=== PATIENT | female | born 1930 | race Caucasian/White ===

== ENCOUNTER → 2018-09-25 | Outpatient (CLI) | payer MEDICARE | LOC: GT 06:45 | PROVIDERS: ATTEND Internal Medicine | DX: R30.0 Dysuria (principal) ==

== ENCOUNTER → 2018-10-26 | Outpatient (CLI) | payer MEDICARE | LOC: GT 11:37 | PROVIDERS: ATTEND Internal Medicine | DX: N39.0 Urinary tract infection, site not specified (principal) ==

== ENCOUNTER → 2018-12-09 | Outpatient (CLI) | payer MEDICARE ==
--- NOTE | 2018-12-09 10:59 | RAD ---
EXAM DESCRIPTION: Chest,2 Views CLINICAL HISTORY: TACHYCARDIA COMPARISON: None TECHNIQUE: PA/lateral FINDINGS: There is no acute appearing cardiac or pulmonary abnormality. Heart size is normal with normal pulmonary vascularity. No pleural effusion or pneumothorax. Lungs are clear with no consolidating infiltrate. Lateral view shows intact sternum and osteopenic T-spine. Lungs appear hyperexpanded on lateral view. IMPRESSION: No acute process is identified in the chest. Electronically signed by: Lavell Yu MD 12/09/2018 10:57 AM CDT
== END ==
LOC: RESP 09:59
PROVIDERS: ATTEND Internal Medicine
DX: R00.0 Tachycardia, unspecified (principal)

== ENCOUNTER 2020-03-30 13:26 | Inpatient (IN) | payer MEDICARE, OTHER ==
--- NOTE | 2020-03-30 14:46 | RAD ---
EXAM: Chest,1 View INDICATION: 89 years Female, COVID+ COMPARISON: 2 views of the chest 12/09/2018 FINDINGS: Single view of the chest was performed. Low lung volumes. Heart size appears more prominent than on the prior examination, but may be accentuated due to image technique and low lung volumes. Mild prominence of the thoracic aorta, which may be related to tortuosity and patient angulation. No pulmonary infiltrate is identified. No pleural effusion. No pneumothorax. Osteopenia. An air-filled loop of bowel is noted in the left upper quadrant. Suture anchors noted at the right proximal humerus. IMPRESSION: 1. Low lung volumes. No pulmonary infiltrate is identified. 2. Heart size appears more prominent than on the prior examination from 12/09/2018, although this is favored to be related to patient positioning and image technique. Electronically signed by: Galilea Llamas MD 03/30/2020 2:45 PM [facility]
[2020-03-30] MEDS ORDERED: AZITHROMYCIN IV 500 MG in SODIUM CHLORIDE 0.9% 250ML 250 ML IVPB ONE (14:56)
[2020-03-30] MEDS ORDERED: cefTRIAXone SODIUM 1 GM in SODIUM CHL 0.9% 50ML MIN-BAG+ 50 ML IVPB ONE (14:56)
[2020-03-30] MEDS ORDERED: DEXAMETHASONE INJ 4 MG/ML VIAL IV ONE (14:57)
--- NOTE | 2020-03-30 15:03 | ED.PDOC ---
History of Present Illness - General Chief Complaint: General Stated Complaint: Sent over to be evaluated for COVID dx Time Seen by Provider: 03/30/20 13:49 Source: patient, EMS notes reviewed, [facility] records Exam Limitations: clinical condition - History of Present Illness Initial Comments: The patient is an 89-year-old female presented to emergency room secondary to being Covid positive. The patient is not short of breath. She is not exhibiting any increased work of breathing. The patient does have some dementia but she is perfectly interactive. She is not complaining of anything. The patient however does have some hypoxia desaturating down to around 88% on room air. She did test positive for Covid this morning. She does have numerous longstanding medical problems. Lung mcg[place] are actually almost clear. Timing/Duration: unsure Severity: mild Improving Factors: nothing Worsening Factors: nothing Associated Symptoms: denies symptoms Allergies/Adverse Reactions: Allergies Penicillins Allergy (Verified 03/30/20 13:46) Sulfa Antibiotics Allergy (Verified 03/30/20 13:46) Home Medications: Ambulatory Orders Ciprofloxacin [Cipro] 250 mg PO BID #20 tab 12/13/13 Levothyroxine Sodium 12/13/13 Metformin HCl 12/13/13 Phenazopyridine HCl [Pyridium] 200 mg PO TID #6 tab 12/13/13 Review of Systems - Review of Systems Constitutional: States: no symptoms reported EENTM: States: no symptoms reported Respiratory: States: no symptoms reported Cardiology: States: no symptoms reported Gastrointestinal/Abdominal: States: no symptoms reported Genitourinary: States: no symptoms reported Musculoskeletal: States: no symptoms reported Skin: States: no symptoms reported Neurological: States: no symptoms reported Endocrine: States: no symptoms reported All other Systems: No Change from Baseline Past Medical History (General) - Patient Medical History Hx Stroke: Yes Hx of COPD: No Hx Cardiac Disorders: No Hx Congestive Heart Failure: No Hx Hypertension: No Hx Thyroid Disease: Yes Hx Diabetes: Yes Hx Cancer: No Surgical History: tonsillectomy, other - Vaccination History Hx Influenza Vaccination: Yes Hx Pneumococcal Vaccination: Yes - Social History Hx Tobacco Use: No Hx Alcohol Use: No Hx Substance Use: No Hx Substance Use Treatment: No Hx Depression: No - Activities of Daily Living Senior Care/Assisted Living (if applicable):: [place] - Female History Patient is a Female of Child Bearing Age (10 -59 yrs old): No Patient : No Family Medical History - Family History Mother Family History: Unknown Physical Exam - Physical Exam General Appearance: Alert, Comfortable, No apparent distress Eye Exam: bilateral normal Ears, Nose, Throat: hearing grossly normal, normal pharynx, nasal congestion Neck: full range of motion, supple Respiratory: no respiratory distress, no accessory muscle use, other - Possibly very fine scattered rails Cardiovascular/Chest: normal peripheral pulses, other - +1 edema to bilateral lower extremities. 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 She does have increased markers for inflammation and a mild lactic acidosis. The patient is being s tarted on oxygen here. She is actually very comfortable as she is. Blood cultures are being done. The patient is being started on Rocephin, azithromycin, remdesivir and dexamethasone. She does have an elevated D-dimer and we will review the records to see if she is already on a blood thinner, and if not start her on 1. The patient does have a very high mortality risk with coronavirus. Admitting for continued care and monitoring. For now the patient appears to be tolerating it well clinically. emily [email or web address] [phone] - Results/Orders Results/Orders: Laboratory Tests 03/30/20 03/30/20 03/30/20 14:19 14:19 14:19 WBC 8.6 RBC 4.47 Hgb 13.8 Hct 40.4 MCV 90.4 MCH 30.9 MCHC 34.2 RDW 14.9 H Plt Count 268 MPV 8.9 Absolute Neuts (auto) 7.20 H Absolute Lymphs (auto) 0.90 L Absolute Monos (auto) 0.50 Absolute Eos (auto) 0.00 Absolute Basos (auto) 0.00 Neutrophils % 83.8 H Lymphocytes % 10.0 L Monocytes % 5.5 Eosinophils % 0.2 L Basophils % 0.5 D-Dimer, Quantitative 812.0 H* Sodium 135 Potassium 3.8 Chloride 98 L Carbon Dioxide 22 Anion Gap 18.8 H BUN 25 H Creatinine 0.56 L BUN/Creatinine Ratio 44.6 H Random Glucose 246 H Serum Osmolality 282.7 Lactic Acid Calcium 8.6 Total Bilirubin 0.4 AST 22 ALT 20 Alkaline Phosphatase 77 LD Total 128 Creatine Kinase 13 L CK-MB (CK-2) 1.2 CK-MB (CK-2) % Not Reportable Troponin I < 0.02 C-Reactive Protein 1.0 B-Natriuretic Peptide 68.4 Serum Total Protein 6.8 Albumin 3.3 Globulin 3.5 Albumin/Globulin Ratio 0.9 L 03/30/20 14:19 WBC RBC Hgb Hct MCV MCH MCHC RDW Plt Count MPV Absolute Neuts (auto) Absolute Lymphs (auto) Absolute Monos (auto) Absolute Eos (auto) Absolute Basos (auto) Neutrophils % Lymphocytes % Monocytes % Eosinophils % Basophils % D-Dimer, Quantitative Sodium Potassium Chloride Carbon Dioxide Anion Gap BUN Creatinine BUN/Creatinine Ratio Random Glucose Serum Osmolality Lactic Acid 4.0 H* Calcium Total Bilirubin AST ALT Alkaline Phosphatase LD Total Creatine Kinase CK-MB (CK-2) CK-MB (CK-2) % Troponin I C-Reactive Protein B-Natriuretic Peptide Serum Total Protein Albumin Globulin Albumin/Globulin Ratio Chest x-ray shows no definitive acute pathology. Departure - Departure Clinical Impression: Pneumonia due to 2019 novel coronavirus, Lactic acidosis Disposition: Admit Patient Condition: Poor Departure Forms: ED Discharge - Pt. Copy, Patient Portal Self Enrollment Referrals: MAYELA RICO [Primary Care Provider] - 1-2 Weeks Home Medications: Ambulatory Orders Ciprofloxacin [Cipro] 250 mg PO BID #20 tab 12/13/13 Levothyroxine Sodium 12/13/13 Metformin HCl 12/13/13 Phenazopyridine HCl [Pyridium] 200 mg PO TID #6 tab 12/13/13 Decision To Admit - Decistion To Admit Decision to Admit Reason: Medical Nature Decision to Admit Date: 03/30/20 Decision to Admit Time: 15:04
[2020-03-30] MEDS ORDERED: SODIUM CHLORIDE 0.9% 1000ML 500 ML IVS ONE (15:04)
--- NOTE | 2020-03-30 15:34 | HP ---
SUPERVISING PHYSICIAN: David Fischer MD CHIEF COMPLAINT: Covid-19. HISTORY OF PRESENT ILLNESS: This is an 89 year-old female patient who presented to the Emergency Room secondary to being Covid positive. She actually went down to 88% on room air and required some oxygen. Her initial labs were temperature 98.2, heart rate of 111, blood pressure 135/89, respiratory rate 18, oxygen saturation 93%, it had been down to 88% on room air. Lab was done and her CBC was basically unremarkable except she did have a left shift on her differential. Her D-dimer was 812. Electrolytes were basically within normal limits with BUN of 25, creatinine 0.56. Lactic acid 4. Blood cultures were drawn. Chest x-ray showed: 1. Low lung volumes, no pulmonary infiltrate identified. 2. Right side appears more prominent than on prior examination on 12/09/2018, although this may be due to patient positioning and image technique. She was given some dexamethasone, some Remdesivir, azithromycin in the Emergency Room and I was called for hospital admission. PAST MEDICAL HISTORY: 1. Cerebrovascular accident. 2. Dementia. 3. Diabetes mellitus. 4. Hypothyroidism. PAST SURGICAL HISTORY: Tonsillectomy. CURRENT MEDICATIONS: Per the EMR and awaiting verification. ALLERGIES: Penicillins and sulfas. SOCIAL HISTORY: She lives at [facility]. There is no history of smoking, ETOH or illicit drug use. REVIEW OF SYSTEMS: GENERAL: Negative for fatigue, fever or weight changes. HEENT: Negative for sinus symptoms, ear pain, vision changes, sore throat. RESPIRATORY: Negative for coughing, wheezing, shortness of breath. CARDIAC: Negative for chest pain, palpitations, tachycardia. GI: Negative for nausea, vomiting, diarrhea. GENITOURINARY: Negative for hematuria, dysuria, polyuria. MUSCULOSKELETAL: Negative for arthralgias, myalgias. SKIN: Negative for lesions or rashes. NEUROLOGICAL: Negative for weakness, headaches or seizures. PHYSICAL EXAMINATION: VITAL SIGNS: Temperature 99, heart rate 115, blood pressure 155/104, it did come down to 122/86 respiratory rate 22, oxygen saturation 93% on 2 liters nasal cannula. GENERAL: This is an 89 year-old female patient who is lying in her hospital bed. She is in no acute distress. HEENT: Normocephalic and atraumatic. Pupils are equal and reactive. Oropharynx is clear. NECK: Supple without mass. CHEST: Essentially clear to auscultation bilaterally. CARDIOVASCULAR: Regular rate and rhythm. ABDOMEN: Soft, nondisplaced, non-tender. Bowel sounds are positive. EXTREMITIES: She does have a trace of edema to bilateral lower extremities. SKIN: Warm and dry. NEUROLOGIC: She is awake and alert but she is somewhat diminished. She is oriented to person and place. Labs and films are as per the history of present illness. ASSESSMENT: 1. Covid-19 Pneumonitis with mild hypoxia. 2. Dementia. 3. Diabetes mellitus type 2. 4. Hypothyroidism. PLAN: The patient has been placed in observation. She will be on the pneumonia and Covid guidelines. Will continue her on Decadron azithromycin, Rocephin, Lovenox and albuterol both p.r.n. and scheduled. She will have aggressive pulmonary hygiene. She has a PPI for ulcer prophylaxis, started her on sliding scale insulin protocol. I have ordered routine labs for any morning as well as a CT scan of the chest. We will continue to monitor closely and follow as needed. [facility][id number]
[2020-03-30] MEDS ORDERED: ALBUTEROL INHALER 64 PUFF/8GM INH PRN (16:57)
[2020-03-30] MEDS ORDERED: REMDESIVIR 200 MG in SODIUM CHLORIDE 0.9% 250ML 250 ML IVPB ONE (17:00)
[2020-03-30] MEDS ORDERED: ACETAMINOPHEN 325 MG TAB PO PRN (17:05)
[2020-03-30] MEDS ORDERED: SODIUM CHLORIDE 0.9% (FLUSH) 10 ML SYG IV PRN (17:05)
[2020-03-30] MEDS ORDERED: ONDANSETRON INJ 4 MG/2 ML VIAL IV PRN (17:05)
[2020-03-30] MEDS: IV SET AND CAP CHANGE INJ INJ SCH (18:07)
[2020-03-30] MEDS ORDERED: INSULIN LISPRO 100 UNITS/ML PEN SUBCU ONE (18:08)
[2020-03-30] MEDS ORDERED: SODIUM CHLORIDE 0.9% 250ML 0 ML ONE (20:39)
[2020-03-30] MEDS ORDERED: REMDESIVIR 0 MG ONE (20:39)
[2020-03-30] MEDS: guaiFENesin ER TAB 600 MG TAB PO SCH (20:58)
[2020-03-30] MEDS: ENOXAPARIN SODIUM 40 MG/0.4 ML SYG SUBCU SCH (20:58)
[2020-03-30] MEDS: SODIUM CHLORIDE 0.9% (FLUSH) 10 ML SYG IV SCH (20:59)
[2020-03-30] MEDS ORDERED: REMDESIVIR 200 MG in SODIUM CHLORIDE 0.9% 250ML 250 ML IVPB SCH (21:00)
[2020-03-30] MEDS: ALBUTEROL INHALER 64 PUFF/8GM INH SCH (22:05)
[2020-03-30] MEDS ORDERED: GLUCAGON INJ 1 MG VIAL SUBCU PRN (22:36)
[2020-03-30] MEDS ORDERED: DEXTROSE 50% 25 GM/50 ML SYG IV PRN (22:36)
[2020-03-31] MEDS ORDERED: LEVOTHYROXINE SODIUM 0.075 MG TAB ONE (05:09)
[2020-03-31] MEDS: LEVOTHYROXINE SODIUM 75 MCG PO SCH (06:05)
[2020-03-31] MEDS: PANTOPRAZOLE SODIUM IV 40 MG VIAL IV SCH (06:05)
[2020-03-31] MEDS ORDERED: ASPIRIN (CHEWABLE) 81 MG TAB ONE (07:19)
[2020-03-31] MEDS ORDERED: AZITHROMYCIN IV 500 MG VIAL IVPB ONE (07:20)
[2020-03-31] MEDS ORDERED: SODIUM CHLORIDE 0.9% 250ML 250 ML ONE ×2 (07:20→11:41)
[2020-03-31] MEDS ORDERED: cefTRIAXone SODIUM 1 GM VIAL ONE (07:20)
[2020-03-31] MEDS ORDERED: metFORMIN HCL 500 MG TAB ONE (07:20)
[2020-03-31] MEDS ORDERED: SODIUM CHL 0.9% 50ML MIN-BAG+ 50 ML IVPB ONE (07:21)
--- NOTE | 2020-03-31 07:32 | CT ---
EXAM: CT Chest Without Intravenous Contrast CLINICAL HISTORY: The patient is 89 years old and is Female; covid TECHNIQUE: Axial computed tomography images of the chest without intravenous contrast. Sagittal and coronal reformatted images were created and reviewed. This CT exam was performed using one or more of the following dose reduction techniques: automated exposure control, adjustment of the mA and/or kV according to patient size, and/or use of iterative reconstruction technique. COMPARISON: No relevant prior studies available. FINDINGS: Lungs: Scattered diffuse hazy opacities in the lungs most prominently on the right. Findings are non-specific, but concerning for atypical pneumonia. There is a focal area of consolidation or atelectasis in the right posterior lower lobe. There is dependent atelectasis, most prominent on the right. There are prominent interstitial markings. Pleural space: Unremarkable. No pneumothorax. No significant effusion. Heart: Unremarkable. No cardiomegaly. No significant pericardial effusion. Mediastinum: There are senescent tracheal calcifications. There is a hiatal hernia with fluid in the esophagus. Bones/joints: Unremarkable. No acute fracture. No dislocation. Soft tissues: Unremarkable. Vasculature: There are scattered aortic and vascular calcifications. No thoracic aortic aneurysm. Lymph nodes: Unremarkable. No enlarged lymph nodes. IMPRESSION: 1. Scattered diffuse hazy opacities in the lungs most prominently on the right. Findings are non-specific, but concerning for atypical pneumonia. 2. There is a focal area of consolidation or atelectasis in the right posterior lower lobe. 3. Hiatal hernia with fluid in the esophagus. Electronically signed by: Fortino Fermin MD 03/31/2020 7:30 AM BACTERIOLOGY TEACHER
[2020-03-31] MEDS: INSULIN LISPRO 100 UNITS/ML PEN SUBCU SCH ×4 (07:40→21:20)
[2020-03-31] MEDS ORDERED: MAGNESIUM SULFATE PREMIX 2GM 2 GM in PREMIX BAG 1 BAG IVPB ONE (08:46)
[2020-03-31] MEDS ORDERED: REMDESIVIR 100 MG in SODIUM CHLORIDE 0.9% 250ML 250 ML IVPB SCH (09:00)
[2020-03-31] MEDS ORDERED: MAGNESIUM SULFATE PREMIX 2GM 50 ML IVPB ONE (09:07)
[2020-03-31] MEDS: ALBUTEROL INHALER 64 PUFF/8GM INH SCH ×4 (09:20→20:26)
[2020-03-31] MEDS: cefTRIAXone SODIUM 1 GM in SODIUM CHL 0.9% 50ML MIN-BAG+ 50 ML IVPB SCH (09:58)
[2020-03-31] MEDS: BIFIDOBACTERIUM INFANTIS 4 MG CAP PO SCH (09:59)
[2020-03-31] MEDS: DEXAMETHASONE INJ 10 MG/ML VIAL IV SCH (09:59)
[2020-03-31] MEDS: ASPIRIN 81 MG PO SCH (09:59)
[2020-03-31] MEDS: guaiFENesin ER TAB 600 MG TAB PO SCH ×2 (09:59→21:16)
[2020-03-31] MEDS: METFORMIN HCL 500 MG PO SCH (10:02)
[2020-03-31] MEDS: METFORMIN HCL 250 MG PO SCH (10:02)
[2020-03-31] MEDS: SODIUM CHLORIDE 0.9% (FLUSH) 10 ML SYG IV SCH ×2 (10:02→21:16)
[2020-03-31] MEDS: AZITHROMYCIN IV 500 MG in SODIUM CHLORIDE 0.9% 250ML 250 ML IVPB SCH (10:58)
[2020-03-31] MEDS ORDERED: REMDESIVIR 100 MG ONE (11:41)
[2020-03-31] MEDS ORDERED: REMDESIVIR 200 MG in SODIUM CHLORIDE 0.9% 250ML 250 ML IVPB SCH (12:00)
[2020-03-31] MEDS: REMDESIVIR 100 MG in SODIUM CHLORIDE 0.9% 250ML 250 ML IVPB SCH (12:22)
--- NOTE | 2020-03-31 16:09 | PN ---
SUPERVISING PHYSICIAN: David Fischer MD DATE: SUBJECTIVE: The patient is resting comfortably, watching TV. She does not seem to be in distress. She has no complaints. Says she is a little bit short of breath, otherwise she is doing well. OBJECTIVE: VITAL SIGNS: Temperature 98.2, pulse 87, blood pressure 123/85, respirations 18, oxygen saturation 95% on 2 liter nasal cannula. GENERAL: Patient is resting comfortably. CHEST: Lung sounds fairly clear, just a little diminished towards the bases. I do not hear any rhonchi, rales, or wheezes. HEART: Regular rate and rhythm. ABDOMEN: Soft, non-tender, positive bowel sounds. EXTREMITIES: No cyanosis, clubbing, or edema noted today. SKIN: Warm and dry. NEUROLOGIC: She is alert and oriented x2. She does repeat her questions quite often but seems to be at her normal baseline mental status. LABORATORY: White count 7,000, hemoglobin 12.2, hematocrit 36.1, differential shows to be without a left shift. D-dimer is down to 770. Chemistries show normal electrolytes. Creatinine is 0.47, lactic acid now normalized to 2.1, magnesium a little low at 1.6, otherwise liver functions within normal limits. MICROBIOLOGY: Blood cultures were showing to be negative at 24 [address] RADIOLOGY: CT of her chest per radiology interpretation showed scattered diffuse hazy opacities in the lungs, more prominent in the right concerning for nonspecific but concerning for atypical pneumonia. ASSESSMENT: 1. Covid-19 Pneumonitis with hypoxia. 2. Dementia. 3. Diabetes mellitus type 2. 4. Hypothyroidism. PLAN: The patient will be treated continuing on Covid guidelines. She is on Decadron, azithromycin, Rocephin, Lovenox, albuterol and Remdesivir. We will continue to follow her labs. Until we can transition patient to outpatient management, hopefully within the next 24-48 hours, we will continue to monitor and treat as needed #[id number] [facility]
[2020-03-31] MEDS: ENOXAPARIN SODIUM 40 MG/0.4 ML SYG SUBCU SCH (21:16)
[2020-04-01] MEDS ORDERED: LEVOTHYROXINE SODIUM 0.075 MG TAB ONE ×2 (04:38→19:17)
[2020-04-01] MEDS ORDERED: PANTOPRAZOLE SODIUM IV 40 MG VIAL ONE ×2 (04:38→19:17)
[2020-04-01] MEDS: LEVOTHYROXINE SODIUM 75 MCG PO SCH (06:10)
[2020-04-01] MEDS: PANTOPRAZOLE SODIUM IV 40 MG VIAL IV SCH (06:11)
[2020-04-01] MEDS ORDERED: ASPIRIN (CHEWABLE) 81 MG TAB ONE (07:20)
[2020-04-01] MEDS ORDERED: BIFIDOBACTERIUM INFANTIS 4 MG CAP ONE (07:20)
[2020-04-01] MEDS ORDERED: DEXAMETHASONE INJ 10 MG/ML VIAL ONE (07:20)
[2020-04-01] MEDS ORDERED: metFORMIN HCL 500 MG TAB ONE (07:21)
[2020-04-01] MEDS ORDERED: REMDESIVIR 100 MG ONE (07:21)
[2020-04-01] MEDS ORDERED: cefTRIAXone SODIUM 1 GM VIAL ONE (07:21)
[2020-04-01] MEDS ORDERED: guaiFENesin ER TAB 600 MG TAB ONE ×2 (07:21→19:17)
[2020-04-01] MEDS ORDERED: SODIUM CHL 0.9% 50ML MIN-BAG+ 50 ML IVPB ONE (07:22)
[2020-04-01] MEDS ORDERED: SODIUM CHLORIDE 0.9% (FLUSH) 10 ML SYG ONE (07:22)
[2020-04-01] MEDS ORDERED: SODIUM CHLORIDE 0.9% 250ML 250 ML ONE ×2 (07:23→11:44)
[2020-04-01] MEDS: INSULIN LISPRO 100 UNITS/ML PEN SUBCU SCH ×4 (08:29→20:51)
[2020-04-01] MEDS: ALBUTEROL INHALER 64 PUFF/8GM INH SCH ×4 (08:42→20:53)
[2020-04-01] MEDS: METFORMIN HCL 500 MG PO SCH (09:01)
[2020-04-01] MEDS: guaiFENesin ER TAB 600 MG TAB PO SCH ×2 (09:01→20:52)
[2020-04-01] MEDS: METFORMIN HCL 250 MG PO SCH (09:01)
[2020-04-01] MEDS: ASPIRIN 81 MG PO SCH (09:01)
[2020-04-01] MEDS: DEXAMETHASONE INJ 10 MG/ML VIAL IV SCH (09:01)
[2020-04-01] MEDS: BIFIDOBACTERIUM INFANTIS 4 MG CAP PO SCH (09:01)
[2020-04-01] MEDS: SODIUM CHLORIDE 0.9% (FLUSH) 10 ML SYG IV SCH ×2 (09:02→20:52)
[2020-04-01] MEDS: cefTRIAXone SODIUM 1 GM in SODIUM CHL 0.9% 50ML MIN-BAG+ 50 ML IVPB SCH (09:02)
[2020-04-01] MEDS: REMDESIVIR 100 MG in SODIUM CHLORIDE 0.9% 250ML 250 ML IVPB SCH (09:11)
[2020-04-01] MEDS ORDERED: AZITHROMYCIN IV 500 MG VIAL IVPB ONE (11:44)
[2020-04-01] MEDS: AZITHROMYCIN IV 500 MG in SODIUM CHLORIDE 0.9% 250ML 250 ML IVPB SCH (11:55)
[2020-04-01] MEDS ORDERED: ENOXAPARIN SODIUM 40 MG/0.4 ML SYG SUBCU ONE (19:17)
--- NOTE | 2020-04-01 19:31 | PN ---
SUPERVISING PHYSICIAN: David Fischer MD DATE: SUBJECTIVE: The patient continues to do well, she is resting comfortably. She is not short of breath today. She reports she is feeling better than yesterday. She has had no nausea or vomiting or other complaints. OBJECTIVE: VITAL SIGNS: Temperature 97.9, pulse 68, blood pressure 138/74, respirations 18, oxygen saturation 93% on 1 liter nasal cannula. GENERAL: Patient is resting comfortably. CHEST: Lungs are clear, just a little diminished towards the bases. I do not hear any rhonchi, rales, or wheezes. HEART: Regular rate and rhythm. ABDOMEN: Soft, non-tender, positive bowel sounds. EXTREMITIES: No cyanosis, clubbing, or edema noted today. SKIN: Warm and dry. NEUROLOGIC: She is alert and oriented x2. She does repeat her questions quite often but seems to be at her normal baseline mental status. LABORATORY: Blood sugars ranging between 164 and 299. ASSESSMENT: 1. Covid-19 Pneumonitis showing to be improving. 2. Dementia. 3. Diabetes mellitus type 2. 4. Hypothyroidism. PLAN: The patient is doing well on current treatment plan. Will continue with Decadron, azithromycin, Rocephin, Lovenox, albuterol and Remdesivir. We will repeat labs in the morning anticipating discharge back to [facility] tomorrow. Until the, we will continue to monitor and treat appropriately.. #[id number] [facility]
[2020-04-01] MEDS: ENOXAPARIN SODIUM 40 MG/0.4 ML SYG SUBCU SCH (20:51)
[2020-04-02] MEDS: LEVOTHYROXINE SODIUM 75 MCG PO SCH (06:08)
[2020-04-02] MEDS: PANTOPRAZOLE SODIUM IV 40 MG VIAL IV SCH (06:08)
[2020-04-02] MEDS: ALBUTEROL INHALER 64 PUFF/8GM INH SCH ×3 (08:05→15:48)
[2020-04-02] MEDS ORDERED: ASPIRIN (CHEWABLE) 81 MG TAB ONE (08:28)
[2020-04-02] MEDS ORDERED: BIFIDOBACTERIUM INFANTIS 4 MG CAP ONE (08:28)
[2020-04-02] MEDS ORDERED: metFORMIN HCL 500 MG TAB ONE (08:29)
[2020-04-02] MEDS ORDERED: guaiFENesin ER TAB 600 MG TAB ONE (08:29)
[2020-04-02] MEDS ORDERED: metFORMIN HCL 500 MG TAB PO SCH ×2 (08:45→17:00)
[2020-04-02] MEDS ORDERED: ASPIRIN (CHEWABLE) 81 MG TAB PO SCH (09:00)
[2020-04-02] MEDS: INSULIN LISPRO 100 UNITS/ML PEN SUBCU SCH ×3 (09:09→17:18)
[2020-04-02] MEDS: guaiFENesin ER TAB 600 MG TAB PO SCH (09:30)
[2020-04-02] MEDS: BIFIDOBACTERIUM INFANTIS 4 MG CAP PO SCH (09:30)
[2020-04-02] MEDS: REMDESIVIR 100 MG in SODIUM CHLORIDE 0.9% 250ML 250 ML IVPB SCH (09:30)
[2020-04-02] MEDS: DEXAMETHASONE INJ 10 MG/ML VIAL IV SCH (09:30)
[2020-04-02] MEDS: AZITHROMYCIN IV 500 MG in SODIUM CHLORIDE 0.9% 250ML 250 ML IVPB SCH (09:31)
[2020-04-02] MEDS: cefTRIAXone SODIUM 1 GM in SODIUM CHL 0.9% 50ML MIN-BAG+ 50 ML IVPB SCH (09:31)
[2020-04-02] MEDS: SODIUM CHLORIDE 0.9% (FLUSH) 10 ML SYG IV SCH (09:31)
[2020-04-02 16:26] VITALS: BP 130/80; TEMP 98.2
[2020-04-02 17:17] VITALS: O2SAT 91
[2020-04-02] MEDS: IV SET AND CAP CHANGE INJ INJ SCH (17:20)
[2020-04-03] MEDS ORDERED: PANTOPRAZOLE SODIUM TAB 40 MG PO SCH (06:30)
[2020-04-03] MEDS ORDERED: LEVOTHYROXINE SODIUM 0.075 MG TAB PO SCH (06:30)
--- NOTE | 2020-04-03 15:37 | DS ---
SUPERVISING PHYSICIAN: Timothy Cannon MD ADMISSION DIAGNOSIS: 1. COVID19 pneumonitis with mild hypoxia. 2. Dementia. 3. Diabetes mellitus, type 2. 4. Hypothyroidism. DISCHARGE DIAGNOSIS: 1. COVID-19 pneumonitis showing to be improving. 2. Dementia. 3. Diabetes mellitus, type 2. 4. Hypothyroidism. REASON FOR HOSPITALIZATION: This is an 89 year-old female patient who presented to the Emergency Room secondary to being COVID positive. She actually went down to 88% on room air and required some oxygen. Her initial labs were temperature 98.2, heart rate of 111, blood pressure 135/89, respiratory rate 18, oxygen saturation 93%, it had been down to 88% on room air. Lab was done and her CBC was basically unremarkable except she did have a left shift on her differential. Her D-dimer was 812. Electrolytes were basically within normal limits with BUN of 25, creatinine 0.56. Lactic acid 4. Blood cultures were drawn. Chest x- ray showed 1) Low lung volumes, no pulmonary infiltrate identified. 2) Right side appears more prominent than on prior examination on 12/09/2018, although this may be due to patient positioning and image technique. She was given some dexamethasone, some Remdesivir, azithromycin in the Emergency Room and I was called for hospital admission. LABORATORY: White count 7,000, hemoglobin 12.2, hematocrit 36.1, platelet count 225,000. Differential was without a left shift. Coagulation studies showed lymph node D-dimer at discharge at 385 compared to admission of 812. Chemistries showed potassium 3.5, creatinine 0.53. Blood sugars ranged between 117 and 233. Calcium 8.1, magnesium 1.8 at discharge. MICROBIOLOGY: Blood cultures were negative after 3 days[address] RADIOLOGY: CT of the chest per radiologic interpretation showed scattered diffuse hazy opacities most predominantly in the right. Findings nonspecific and concerning for atypical pneumonia. Please see that report for details. HOSPITAL COURSE: Ms. De Los Santos was admitted and treated in the hospital for COVID pneumonitis pneumonia. She was treated while in the hospital with azithromycin, Rocephin, Decadron, Levaquin, Remdesivir. She responded well to treatment and it was felt that she had responded well enough was stable enough to continue with outpatient management. On date of discharge, vital signs showed she was afebrile at 98.2, pulse 87, blood pressure 130/80, respirations 18, saturation 93-94% on room air. PLAN: Ms. De Los Santos was discharged back to [facility] with instructions to followup with Dr. Reyes in 1 to 2 weeks. She was to resume her usual diet including diabetic diet. She was to increase activity as tolerated. MEDICATIONS PRESCRIBED ON DISCHARGE: 1. Align 4 mg daily. 2. Eliquis 2.5 mg twice a day, 5 mg tablets take half tablet twice daily for 14 days, then stop, #14. 3. Cefdinir 300 mg twice a day, #14. 4. Albuterol inhalers as needed q.4h. She is to resume all other previous medications as prior to hospitalization as per medical administration record which also did include low dose prednisone 10 mg daily prior to hospitalization. CONDITION ON DISCHARGE: Stable and improved. DISPOSITION: The patient was discharged back to [facility]. #[id number] [facility]TDD
== END 2020-04-02 17:48 | DRG 177 ==
LOC: ER 13:26 → OBSVTOIN 15:34 → MS 15:34
PROVIDERS: ADMIT Nurse Practitioner Acute Care; ATTEND Nurse Practitioner Family
PROC: XW033E5 Introduction of Remdesivir Anti-infective into Peripheral Vein, Percutaneous Approach, New Technology Group 5 (ICD-10-PCS; principal; 2020-03-30)
DX: U07.1 COVID-19 (principal); J12.89 Other viral pneumonia; E87.2 Acidosis; F03.90 Unspecified dementia, unspecified severity, without behavioral disturbance, psychotic disturbance, mood disturbance, and anxiety; E11.9 Type 2 diabetes mellitus without complications; E03.9 Hypothyroidism, unspecified; Z86.73 Personal history of transient ischemic attack (TIA), and cerebral infarction without residual deficits; Z88.0 Allergy status to penicillin; Z88.2 Allergy status to sulfonamides; Z79.899 Other long term (current) drug therapy

== ENCOUNTER → 2020-04-09 | Outpatient (CLI) | payer MEDICARE, OTHER | LOC: GT 13:34 | PROVIDERS: ATTEND Family Medicine | DX: R09.02 Hypoxemia (principal); R71.8 Other abnormality of red blood cells ==

== ENCOUNTER → 2020-04-13 | Outpatient (CLI) | payer MEDICARE, OTHER | LOC: GT 04:35 | PROVIDERS: ATTEND Internal Medicine | DX: U07.1 COVID-19 (principal); R71.8 Other abnormality of red blood cells; R09.02 Hypoxemia ==

== ENCOUNTER → 2020-04-26 | Outpatient (CLI) | payer MEDICARE, OTHER | LOC: GT 06:15 | PROVIDERS: ATTEND Internal Medicine | DX: R19.7 Diarrhea, unspecified (principal) ==

== ENCOUNTER → 2020-05-09 | Outpatient (CLI) | payer MEDICARE | LOC: GT 06:28 | PROVIDERS: ATTEND Internal Medicine | DX: E11.9 Type 2 diabetes mellitus without complications (principal); E78.5 Hyperlipidemia, unspecified; A04.72 Enterocolitis due to Clostridium difficile, not specified as recurrent; D51.9 Vitamin B12 deficiency anemia, unspecified ==

== ENCOUNTER → 2020-05-17 | Outpatient (CLI) | payer MEDICARE | LOC: GT 17:56 | PROVIDERS: ATTEND Internal Medicine | DX: E55.9 Vitamin D deficiency, unspecified (principal); R73.09 Other abnormal glucose; A04.72 Enterocolitis due to Clostridium difficile, not specified as recurrent; R68.89 Other general symptoms and signs ==